=== PATIENT | male | born 1950 | race African-American/Black ===

== ENCOUNTER 2017-12-31 20:19 | Inpatient (IN) | payer MEDICARE ==
[2017-12-31] MEDS ORDERED: NACL 0.9% 500 ML 500 ML IV ONE (20:46)
[2017-12-31 20:59] LABS: Basophils # (Auto) 0.1 K/mm3 (0.0-0.1); Basophils % (Auto) 0.5 % (0.0-1.8); Eosinophils # (Auto) 0.1 K/mm3 (0.0-0.4); Eosinophils % (Auto) 0.7 % (0.0-4.3); Hematocrit 38.9 % (35.5-45.6); Hemoglobin 12.5 gm/dl (11.8-15.2); Lymphocytes # (Auto) 0.9 K/mm3 (1.2-5.4); Lymphocytes % (Auto) 7.4 % (13.4-35.0); Mean Corpuscular HGB Conc 32 % (32-34); Monocytes # (Auto) 0.7 K/mm3 (0.0-0.8); Monocytes % (Auto) 5.2 % (0.0-7.3); Platelet Count 190 K/mm3 (140-440); Red Blood Count 5.76 M/mm3 (3.65-5.03); Red Cell Distribution Width 14.8 % (13.2-15.2)
[2017-12-31 21:08] LABS: Mean Corpuscular Hemoglobin 22 pg (28-32); Mean Corpuscular Volume 68 fl (84-94)
[2017-12-31 21:09] LABS: INR 0.85 (0.87-1.13)
[2017-12-31 21:13] LABS: Alanine Aminotransferase 29 units/L (7-56); Albumin 3.6 g/dL (3.9-5); BUN/Creatinine Ratio 16; Blood Urea Nitrogen 13 mg/dL (9-20); Hemolysis Index 2
[2017-12-31 21:16] LABS: Calcium 5.8 mg/dL (8.4-10.2)
[2017-12-31 21:21] LABS: Bilirubin,Urine NEG (Negative); Blood,Urine MOD (Negative); Color,Urine Yellow (Yellow); Hyaline Casts,Urine 2 /LPF; Mucus,Urine 2+ /HPF; Urobilinogen,Urine < 2.0 mg/dL (<2.0)
[2017-12-31 21:22] LABS: WBC,Urine > 182.0 /HPF (0.0-6.0)
--- NOTE | 2017-12-31 22:23 | XRay Report ---
FINAL REPORT EXAM: XR CHEST 1V AP HISTORY: possible Sepsis TECHNIQUE: upright single view chest PRIORS: None. FINDINGS: Cardiac and mediastinal contours are unremarkable. No focal pulmonary infiltrate is identified. No pleural fluid collection seen. Pulmonary vasculature is unremarkable. IMPRESSION: Negative single-view chest
[2017-12-31] MEDS ORDERED: cefTRIAXone 2 GM in NACL 0.9% 20 ML IV ONE (23:14)
[2017-12-31] MEDS ORDERED: ULTRAM PO ONE (23:37)
--- NOTE | 2017-12-31 23:42 | Emergency Department Report ---
ED Fever HPI - General Chief Complaint: Fever Stated Complaint: CHILLS Time Seen by Provider: 12/31/17 23:12 - History of Present Illness Initial Comments: Mr. Fournier is a healthy 67-year-old male with history of dyslipidemia, BPH. Recently diagnosed with urinary retention. He was evaluated 2 times this past week at [facility]. In between the two ED visits, he was evaluated by a urologist who removed Cormier catheter. He subsequently needed catheter to be replaced on the second visit. He's been in good health. He developed discomfort pelvic discomfort on yesterday. Today he developed fever. On-call physician recommended evaluation in the ER for possible sepsis. Timing/Duration: this evening Fever Severity/Quality: subjective Associated Symptoms: other (pelvic pain) ED Review of Systems ROS: Stated complaint: CHILLS Other details as noted in HPI Comment: All other systems reviewed and negative Constitutional: chills, fever Cardiovascular: denies: chest pain Gastrointestinal: denies: abdominal pain, nausea, vomiting Genitourinary: urgency, dysuria, testicular pain ED Past Medical Hx - Past Medical History Previous Medical History?: Yes Hx Hypertension: Yes Additional medical history: High cholesterol, Prostate issues x 2 years, since last Sunday problems urination - Surgical History Past Surgical History?: Yes Hx Appendectomy: Yes Additional Surgical History: Hernia - Social History Smoking Status: Never Smoker ED Physical Exam - General Limitations: No Limitations General appearance: alert, in no apparent distress - Head Head exam: Present: atraumatic, normocephalic - Eye Eye exam: Present: normal appearance - ENT ENT exam: Present: mucous membranes moist - Neck Neck exam: Present: normal inspection - Respiratory Respiratory exam: Present: normal lung sounds bilaterally. Absent: respiratory distress, wheezes, rales, rhonchi - Cardiovascular Cardiovascular Exam: Present: regular rate, normal rhythm, normal heart sounds. Absent: systolic murmur, diastolic murmur, rubs, gallop - GI/Abdominal GI/Abdominal exam: Present: soft, normal bowel sounds. Absent: distended, tenderness, guarding, rebound - Rectal Rectal exam: Present: deferred - Extremities Exam Extremities exam: Present: normal inspection - Back Exam Back exam: Present: normal inspection - Neurological Exam Neurological exam: Present: alert, oriented X3 - Psychiatric Psychiatric exam: Present: normal affect, normal mood - Skin Skin exam: Present: warm, dry, intact, normal color. Absent: rash ED Course Vital Signs 12/31/17 12/31/17 12/31/17 20:31 21:55 22:00 Temperature 101.2 F H Pulse Rate 104 H 88 89 Respiratory 20 22 Rate Blood Pressure 108/74 118/72 Blood Pressure [Left] O2 Sat by Pulse 97 96 97 Oximetry 12/31/17 12/31/17 12/31/17 22:01 22:31 23:00 Temperature 100.1 F H Pulse Rate 88 76 76 Respiratory 19 16 22 Rate Blood Pressure 133/76 132/78 Blood Pressure 119/72 [Left] O2 Sat by Pulse 98 98 97 Oximetry 12/31/17 01/01/18 01/01/18 23:31 00:01 00:03 Temperature Pulse Rate 83 86 91 H Respiratory 15 Rate Blood Pressure 141/77 145/58 145/58 Blood Pressure [Left] O2 Sat by Pulse 99 97 98 Oximetry 01/01/18 01/01/18 01/01/18 00:10 00:30 01:00 Temperature 102.2 F H Pulse Rate 84 91 H Respiratory 16 Rate Blood Pressure 137/68 122/66 Blood Pressure [Left] O2 Sat by Pulse 94 95 Oximetry 01/01/18 01/01/18 01:07 01:30 Temperature 100.7 F H Pulse Rate 87 Respiratory 17 Rate Blood Pressure 106/52 Blood Pressure [Left] O2 Sat by Pulse 95 Oximetry ED Medical Decision Making - Lab Data Result diagrams: 12/31/17 20:51 12/31/17 20:51 - Radiology Data interpreted by me: NSR nl rate nl axis nl intervals no ST-T signs of ischemia no ST elevation rate 80 beats a minute - Medical Decision Making Mr. Fournier 67-year-old male who presents with fever and pelvic discomfort due to UTI associated with Cormier catheter. He currently has normal vital signs without any intervention. He does not have tachycardia or hypotension. He has normal respiratory rate. He does have fever and elevated white count. He does meet SIRS criteria with possible risk of sepsis. Therefore he received IV ceftriaxone in the ED. Blood cultures were obtained. Patient has history of vitamin D deficiency. He takes calcium supplementation daily. He has notable hypocalcemia in the ED without EKG abnormalities. Persistent fever and concern for sepsis patient is admitted to the hospitalist service. Critical care attestation.: If time is entered above; I have spent that time in minutes in the direct care of this critically ill patient, excluding procedure time. ED Disposition Clinical Impression: Complicated UTI (urinary tract infection), SIRS (systemic inflammatory response syndrome) Disposition: OP ADMIT IP TO THIS HOSP Is pt being admited?: Yes Does the pt Need Aspirin: No Condition: Stable Time of Disposition: 02:06
[2017-12-31] MEDS ORDERED: TYLENOL PO ONE (23:46)
[2018-01-01] MEDS ORDERED: ZOFRAN IV PRN (03:07)
[2018-01-01] MEDS ORDERED: MORPHINE IV PRN (03:07)
[2018-01-01] MEDS ORDERED: HEPARIN ONE (03:30)
[2018-01-01] MEDS: HEPARIN SUB-Q SCH ×3 (03:34→22:37)
[2018-01-01] MEDS ORDERED: CALCIUM GLUCONATE 1,000 MG in NACL 0.9% 100 ML IV ONE (04:08)
[2018-01-01] MEDS ORDERED: CALCIUM CHLORIDE 1,000 MG in NACL 0.9% 100 ML IV ONE (04:15)
[2018-01-01] MEDS: TYLENOL PO PRN ×2 (04:57→09:46)
[2018-01-01] MEDS ORDERED: ROCEPHIN/NS 1 GM/50 ML 1 GM/50 ML BAG IV SCH (10:00)
[2018-01-01 11:11] LABS: Hematocrit 42.2 % (35.5-45.6); Hemoglobin 13.8 gm/dl (11.8-15.2); Mean Corpuscular HGB Conc 33 % (32-34); Platelet Count 191 K/mm3 (140-440); Red Blood Count 6.25 M/mm3 (3.65-5.03); Red Cell Distribution Width 14.8 % (13.2-15.2)
--- NOTE | 2018-01-01 11:13 | Event Note ---
Date: 01/01/18 Pt seen and examined Presented with sepsis, UTI and urinary retention Change abx to cefepime till cx result available Will cont current mx and plan as dictated in H and P.
[2018-01-01] MEDS: NACL 0.9% 1000 ML 1,000 ML IV SCH ×2 (11:16→22:36)
[2018-01-01] MEDS: PROSCAR PO SCH (11:16)
[2018-01-01] MEDS: FLOMAX PO SCH (11:16)
[2018-01-01] MEDS: PERCOCET 5/325 PO PRN ×2 (11:17→17:41)
[2018-01-01 11:18] LABS: Mean Corpuscular Hemoglobin 22 pg (28-32); Mean Corpuscular Volume 68 fl (84-94)
[2018-01-01 11:20] LABS: BUN/Creatinine Ratio 10; Blood Urea Nitrogen 9 mg/dL (9-20); Calcium 9.4 mg/dL (8.4-10.2); Hemolysis Index 11
[2018-01-01] MEDS: MAXIPIME 1 GM in NACL 0.9% 20 ML IV SCH ×2 (13:41→22:37)
[2018-01-01] MEDS ORDERED: MAXIPIME/NS 1 GM/100 ML 1 GM/100 ML BAG IV SCH (14:00)
[2018-01-01] MEDS ORDERED: cefTRIAXone 1 GM in NACL 0.9% 20 ML IV SCH (22:00)
[2018-01-02] MEDS: PERCOCET 5/325 PO PRN (03:05)
[2018-01-02] MEDS: MAXIPIME 1 GM in NACL 0.9% 20 ML IV SCH ×3 (06:40→21:15)
[2018-01-02] MEDS: PROSCAR PO SCH (10:18)
[2018-01-02] MEDS: HEPARIN SUB-Q SCH ×2 (10:18→21:11)
[2018-01-02] MEDS: FLOMAX PO SCH (10:18)
--- NOTE | 2018-01-02 10:43 | Cat Scan Report ---
FINAL REPORT EXAM: CT ABDOMEN PELVIS WO CON HISTORY: urinary retention TECHNIQUE: CT of the abdomen and pelvis without IV contrast. Coronal and sagittal reconstructed imaging provided. PRIORS: None currently available. FINDINGS: ABDOMEN: Liver, gallbladder, stomach, spleen, pancreas, adrenals, and kidneys are unremarkable. No hydronephrosis. No nephroureteral stones. No significant perinephric stranding. There is no abdominal aortic aneurysm. Lwct-ju-glipcvzt atherosclerotic disease noted. IVC is unremarkable. There is no periaortic or retroperitoneal adenopathy or mass. Moderate stool in the cecum and ascending colon. Hjrg-ij-itrxtakm stool elsewhere. No wall thickening or inflammatory changes. Terminal ilium is unremarkable. The appendix is not identified. There are no pericecal inflammatory changes. Small bowel loops are unremarkable. No obstructive pattern. No free air. No free fluid. Mesentery is unremarkable. Fat-containing umbilical hernia without strangulation. PELVIS: Bladder is partially collapsed around the Cormier catheter but notable bladder wall thickening identified with a thickness of 7.2 mm. Significantly enlarged prostate and seminal vesicles noted. There is no pelvic mass or adenopathy. Inguinal regions are unremarkable. Bones: No suspicious osseous lesions on this limited examination of the skeleton. Metastatic disease better evaluated with bone scan. Degenerative changes are in the spine. IMPRESSION: Significantly enlarged prostate and seminal vesicles. Thick wall bladder. Findings could be related to bladder outlet obstruction. Differential diagnosis includes cystitis and infiltrating tumor.
[2018-01-02] MEDS: TYLENOL PO PRN ×2 (12:45→22:45)
[2018-01-02] MEDS: NACL 0.9% 1000 ML 1,000 ML IV SCH (13:53)
--- NOTE | 2018-01-02 15:06 | Progress Note ---
Assessment and Plan UTI with sepsis - Cx growing gm -ve rods - cont abx, will follow final cx result BPH with urinary retention - placed on funes - monitor renal function - consulted urology - cont flomax and tamsulosin HLD, on statin at home DVT Px, lovenox Subjective Date of service: 01/02/18 Interval history: Pt seen and examined denies any chest pain or SOB c/o penile pain at the catheter site Discussed bedside with patient and family Objective - Constitutional Vitals: Vital Signs - 12hr 01/02/18 01/02/18 01/02/18 07:35 10:00 10:13 Temperature 98.9 F Pulse Rate 84 80 Pulse Rate [ 80 Apical] Respiratory 18 18 Rate Blood Pressure 132/85 Blood Pressure [Left] O2 Sat by Pulse 99 99 Oximetry 01/02/18 01/02/18 01/02/18 12:43 12:47 14:11 Temperature 100.0 F H 100 F H 99.0 F Pulse Rate 84 82 Pulse Rate [ Apical] Respiratory 20 16 Rate Blood Pressure 139/77 Blood Pressure 139/77 [Left] O2 Sat by Pulse 99 98 Oximetry General appearance: Present: no acute distress, well-nourished - EENT Eyes: PERRL, EOM intact ENT: hearing intact, clear oral mucosa Ears: bilateral: normal - Neck Neck: supple, normal ROM - Respiratory Respiratory effort: normal Respiratory: bilateral: CTA - Breasts Breasts: normal - Cardiovascular Rhythm: regular Heart Sounds: Present: S1 & S2. Absent: gallop, rub Extremities: pulses intact, No edema, normal color, Full ROM - Gastrointestinal General gastrointestinal: Present: soft, non-tender, non-distended, normal bowel sounds - Integumentary Integumentary: clear, warm, dry - Musculoskeletal Musculoskeletal: 1, strength equal bilaterally - Neurologic Neurologic: moves all extremities - Psychiatric Psychiatric: memory intact, appropriate mood/affect, intact judgment & insight - Labs CBC & Chem 7: 01/01/18 09:31 01/01/18 09:31
--- NOTE | 2018-01-02 16:11 | Progress Note ---
Assessment and Plan mild prostatic enlargemet met with daughter raymond bergman keep funes iv antibiotics dictated Subjective Date of service: 01/02/18 Principal diagnosis: retention .. infection Objective - Constitutional Vitals: Vital Signs - 12hr 01/02/18 01/02/18 01/02/18 07:35 10:00 10:13 Temperature 98.9 F Pulse Rate 84 80 Pulse Rate [ 80 Apical] Respiratory 18 18 Rate Blood Pressure 132/85 Blood Pressure [Left] O2 Sat by Pulse 99 99 Oximetry 01/02/18 01/02/18 01/02/18 12:43 12:47 14:11 Temperature 100.0 F H 100 F H 99.0 F Pulse Rate 84 82 Pulse Rate [ Apical] Respiratory 20 16 Rate Blood Pressure 139/77 Blood Pressure 139/77 [Left] O2 Sat by Pulse 99 98 Oximetry General appearance: Present: no acute distress - Neck Neck: supple - Respiratory Respiratory effort: normal Extremities: no ischemia - Gastrointestinal General gastrointestinal: Present: soft, non-tender Rectal Exam: normal rectal tone - Genitourinary Male genitourinary: normal (funes) - Labs CBC & Chem 7: 01/01/18 09:31 01/01/18 09:31
[2018-01-03] MEDS: NACL 0.9% 1000 ML 1,000 ML IV SCH ×2 (02:23→23:08)
[2018-01-03] MEDS: MAXIPIME 1 GM in NACL 0.9% 20 ML IV SCH (05:28)
[2018-01-03] MEDS: HEPARIN SUB-Q SCH ×2 (09:16→21:57)
[2018-01-03] MEDS: PROSCAR PO SCH (09:16)
[2018-01-03] MEDS: FLOMAX PO SCH (09:16)
--- NOTE | 2018-01-03 09:24 | Consultation ---
HISTORY OF PRESENT ILLNESS: The patient is here with his daughter who actually is in my office now, who came in with his second episode of urinary retention with high fevers and chills. He had a catheter inserted after a long trip from [place] and then taken out. He was told everything was fine. He had recurrent retention. He is known to have a prostate issue. He has been on Flomax in the past. PAST MEDICAL HISTORY: Basically unremarkable except for diminished flow. PAST SURGICAL HISTORY: He has had a hernia surgery. PAST MEDICAL HISTORY: Hypertension. FAMILY HISTORY: Negative. REVIEW OF SYSTEMS: As mentioned above. PHYSICAL EXAMINATION: GENERAL: He is awake, alert, in no distress. HEENT: Normocephalic, nontraumatic. ABDOMEN: Soft, nondistended. GENITALIA: Testes descended bilaterally. Uncircumcised. Cormier catheter was 3- way draining with the port is plugged. Digital rectal exam mildly enlarged prostate. No localized masses. IMPRESSION: Urinary retention, on Flomax. He needs an evaluation, leave the Cormier, cystoscopy, urodynamics followup. AMEYA
[2018-01-03] MEDS: TYLENOL PO PRN (10:10)
--- NOTE | 2018-01-03 13:12 | Progress Note ---
Assessment and Plan UTI with sepsis - Cx growing gm -ve rods - will follow final cx result - change Cefepime to meropenem as family reported itching from Cefepime BPH with urinary retention - placed on funes - monitor renal function - Urology following - cont flomax and tamsulosin HLD, on statin at home DVT Px, lovenox Subjective Date of service: 01/03/18 Principal diagnosis: retention .. infection Interval history: Pt seen and examined denies any chest pain or SOB Family reported that pt had itching with cefepime Discussed bedside with patient and family Objective - Constitutional Vitals: Vital Signs - 12hr 01/03/18 01/03/18 01/03/18 02:00 02:48 07:40 Temperature 98.7 F 97.8 F Pulse Rate 61 62 Respiratory 20 18 Rate Blood Pressure 138/78 137/78 O2 Sat by Pulse 97 98 Oximetry General appearance: Present: no acute distress, well-nourished - EENT Eyes: PERRL, EOM intact ENT: hearing intact, clear oral mucosa Ears: bilateral: normal - Neck Neck: supple, normal ROM - Respiratory Respiratory effort: normal Respiratory: bilateral: CTA - Breasts Breasts: normal - Cardiovascular Rhythm: regular Heart Sounds: Present: S1 & S2. Absent: gallop, rub Extremities: pulses intact, No edema, normal color, Full ROM - Gastrointestinal General gastrointestinal: Present: soft, non-tender, non-distended, normal bowel sounds - Integumentary Integumentary: clear, warm, dry - Musculoskeletal Musculoskeletal: 1, strength equal bilaterally - Neurologic Neurologic: moves all extremities - Psychiatric Psychiatric: memory intact, appropriate mood/affect, intact judgment & insight - Labs CBC & Chem 7: 01/01/18 09:31 01/01/18 09:31
[2018-01-03] MEDS: MERREM/NS 500 MG/50 ML 500 MG/50 ML BAG IV SCH ×2 (16:21→20:35)
[2018-01-03] MEDS ORDERED: NON-FORMULARY (Simvastatin 40 MG) PO SCH (22:00)
[2018-01-03] MEDS ORDERED: PRAVACHOL PO SCH (22:00)
[2018-01-04] MEDS: MERREM/NS 500 MG/50 ML 500 MG/50 ML BAG IV SCH ×3 (02:35→14:42)
[2018-01-04 07:24] LABS: Hematocrit 37.7 % (35.5-45.6); Mean Corpuscular HGB Conc 32 % (32-34); Platelet Count 244 K/mm3 (140-440); Red Blood Count 5.56 M/mm3 (3.65-5.03)
[2018-01-04 07:30] LABS: Mean Corpuscular Hemoglobin 22 pg (28-32); Mean Corpuscular Volume 68 fl (84-94)
[2018-01-04 07:37] LABS: BUN/Creatinine Ratio 12; Blood Urea Nitrogen 7 mg/dL (9-20); Calcium 8.8 mg/dL (8.4-10.2); Hemolysis Index 5
--- NOTE | 2018-01-04 09:07 | History and Physical Report ---
CHIEF COMPLAINT: Fever and chills. HISTORY OF PRESENT ILLNESS: The patient is a 67-year-old man with recent history of urinary retention due to prostate enlargement and the patient was following up with the urologist and had the Cormier catheter placed. Because of urinary retention, catheter was also replaced and the patient subsequently developed fever and chills and also has tachycardia. There is no history of shortness of breath. No history of nausea or vomiting. The patient was supposed to follow up with the urologist within the next 48 hours. He presented to the Emergency Room. There is also history of pain at the site of catheter placement. PAST MEDICAL HISTORY: Pertinent for hypertension. Also, the patient has past history of high cholesterol, prostate enlargement, urinary retention. PAST SURGICAL HISTORY: Pertinent for appendectomy and hernia repair. FAMILY HISTORY: Noncontributory. SOCIAL HISTORY: The patient lives with family. Does not smoke, does not drink alcohol and does not use illicit drugs. MEDICATIONS: The patient's home medications are not known at this time. ALLERGIES: THE PATIENT IS ALLERGIC TO PENICILLIN. REVIEW OF SYSTEMS: CONSTITUTIONAL: There is fever. There is chills, but no diaphoresis. HEENT: There is no headache or sore throat. CARDIOVASCULAR: There is no chest pain or orthopnea. RESPIRATORY: There is no shortness of breath or cough. GASTROINTESTINAL: There is no nausea, no vomiting, no abdominal pain, diarrhea or constipation. NEUROLOGICAL: There is no numbness, no dizziness, no altered mental status. MUSCULOSKELETAL: There is no joint pain or swelling. DERMATOLOGICAL: There is no skin rash or itching. GENITOURINARY: There is history of dysuria and pain in the penile area where the Cormier catheter is in place. There is no hematuria and there is no flank pain. Rest of system review is normal. PHYSICAL EXAMINATION: GENERAL: At the time of exam, the patient was found to be alert, oriented x 3 and not in acute distress. VITAL SIGNS: Shows temperature of 99 degrees Fahrenheit, pulse of 79, respiration 12, blood pressure 114/68, O2 sat of 98% on room air. HEENT: Shows pupils to be equal, round, reactive to light and accommodation. Extraocular muscles are intact. NECK: Supple with no JVD or carotid bruit. CARDIOVASCULAR: Showed normal first and second heart sounds with no gallops or murmur. RESPIRATORY SYSTEM: Showed good air entry on both sides of the lungs with no abnormal breath sounds. GASTROINTESTINAL SYSTEM: Show abdomen to be full, soft, nontender with no organomegaly or rigidity. NEUROLOGICAL: Shows no focal deficit. MUSCULOSKELETAL SYSTEM: Show no joint swelling or tenderness. DERMATOLOGICAL SYSTEM: Show no skin rash. GENITOURINARY: Showing no costovertebral angle tenderness. PERTINENT LABORATORY AND IMAGING STUDIES: The patient has CBC done with elevated white count of 5600 with normal hemoglobin, normal hematocrit, low MCV of 68 with CBC differential showing low lymphocyte count of 7.4 and elevated segmented neutrophil of 86.2%. The patient's coagulation studies were unremarkable. The patient's chemistry shows slight decrease in sodium level of 132 with low chloride of 96.4 and low calcium level of 5.8 with elevated total bilirubin of 2. The patient's urinalysis show large urine leukocyte esterase with high urine WBC of greater than 182 and high urine RBC of 32. The finding of 1+ yeast budding in the urine. IMAGING STUDIES: The patient had chest x-ray done in the Emergency Room that shows no acute lesion. DIAGNOSES: 1. Urinary catheter associated urinary tract infection. 2. Systemic inflammatory response syndrome. 3. Hypocalcemia. PLAN: The patient will be admitted to medical floor on telemetry and the patient will be on IV ceftriaxone 1 gram daily, having had the first dose without reaction. The patient will be on IV morphine 2 mg every 4 hours as needed for pain and will be on IV Zofran 4 mg every 8 hours for nausea and vomiting. The patient will be on IV normal saline at 75 mL an hour and will be on Tylenol 650 mg by mouth every 4 hours for fever and headache. DVT prophylaxis will be through heparin 5000 units subQ q. 12 hours. The patient will have 1 gram of calcium gluconate IV. The patient's home medications will be reconciled and started accordingly when they are known. JOB# [id number] OCN/NTS
[2018-01-04] MEDS: FLOMAX PO SCH (09:50)
[2018-01-04] MEDS: HEPARIN SUB-Q SCH (09:51)
[2018-01-04] MEDS: PROSCAR PO SCH (09:51)
--- NOTE | 2018-01-04 10:16 | Consultation ---
HISTORY OF PRESENT ILLNESS: The patient is here with his daughter who actually is in my office now, who came in with his second episode of urinary retention with high fevers and chills. He had a catheter inserted after a long trip from [place] and then line of ____ and taken out. He was told everything was fine. He had recurrent retention. He is known to have a prostate issue. He has been on Flomax in the past. PAST MEDICAL HISTORY: Basically unremarkable except for diminished flow. PAST SURGICAL HISTORY: He has had a hernia surgery. PAST MEDICAL HISTORY: Hypertension. FAMILY HISTORY: Negative. REVIEW OF SYSTEMS: As mentioned above. PHYSICAL EXAMINATION: GENERAL: He is awake, alert, in no distress. HEENT: Normocephalic, nontraumatic. ABDOMEN: Soft, nondistended. GENITALIA: Testes descended bilaterally. Uncircumcised. Cormier catheter was 3-way draining with the port is plugged. Digital rectal exam mildly enlarged prostate. No localized masses. IMPRESSION: Urinary retention, on Flomax. He needs an evaluation, leave the Cormier, cystoscopy, urodynamics followup. JOB# [id number] EMILY/CINTHIA
--- NOTE | 2018-01-04 11:23 | Consultation ---
History of Present Illness - Reason for Consult Consult date: 01/04/18 UTI Requesting physician: MALKA JAY - History of Present Illness HPI: 68 yo M from [place] with PMH dyslipidemia, BPH who returned from a 2-month trip to [facility] last and was unable to urinate while on the plane. He was taken to [facility], where he had a funes catheter placed. He followed up same day with urology and the funes catheter was removed. While at home he developed again urinary retention and had to go to the ER again on Thursday 12/28 for a new funes catheter insertion. On 12/31 he developed pelvic discomfort and fever. Therefore he presented to [facility] ER on 12/31. He denies N/V/D, cough, SOB, CP, palpitations, skin rash, HEWITT. In the ER his temperature was 101.2, pulse 104, respiratory rate 20, saturation 97% , blood pressure 108/74. Labs showed leukocytosis of 12.6, H&H 12.5 and 38.9, platelets 190. Bun creatinine 13 and 0.8. Lactic acid 1.3. Urinalysis with negative nitrates, large leukocyte esterase, RBC 32, WBC > 182. Urine culture grew 10-100,000 colonies of Morganella morganii (MDR). Blood cultures are no growth today. Chest x-ray showed no acute findings. CT of abdomen and pelvis done on 01/02 showed large prostate and seminal vesicles, thick wall bladder that could be secondary to bladder outlet obstruction versus cystitis versus infiltrative tumor. Patient received ceftriaxone in the emergency room. He was started on 01/01 on cefepime. Apparently patient developed nightmares, shakiness on the cefepime. Therefore it was discontinued on 01/03. He is currently on meropenem which was started 01/03. Infectious diseases is consulted today to help with further antibiotic management. Microbiology: Blood cultures: 12/31 NGTD Urine cultures 12/31 MDR Morganella morganii Current Antimicrobials: Meropenem 01/03- Previous Antimicrobials: Ceftriaxone 01/01. Cefepime 01/01-01/03. Past History Past Medical History: hyperlipidemia, other (BPH) Past Surgical History: appendectomy, hernia repair Medications and Allergies Allergies Allergy/AdvReac Type Severity Reaction Status Date / Time Penicillins Allergy Dizziness Verified 12/31/17 20:29 Home Medications Medication Instructions Recorded Confirmed Last Taken Type Finasteride [Proscar] 5 mg PO DAILY 01/02/18 01/02/18 Unknown History Fluticasone [Flonase] 1 spray INNOSTRIL DAILY PRN 01/02/18 01/02/18 Unknown History Simvastatin 40 mg PO HS 01/02/18 01/02/18 Unknown History Tamsulosin HCl [Flomax] 0.4 mg PO HS 01/02/18 01/02/18 Unknown History Active Meds: Active Medications Finasteride (Proscar) 5 mg PO QDAY [facility] Last Admin: 01/04/18 09:51 Dose: 5 mg Heparin Sodium (Porcine) (Heparin) 5,000 unit SUB-Q Q12HR [facility] Last Admin: 01/04/18 09:51 Dose: 5,000 unit Meropenem (Merrem/Ns 500 Mg/50 Ml) 500 mg in 50 mls @ 50 mls/hr IV Q6H [facility] Last Admin: 01/04/18 09:51 Dose: 50 mls/hr Morphine Sulfate (Morphine) 2 mg IV Q4H PRN PRN Reason: Pain, Moderate (4-6) Ondansetron HCl (Zofran) 4 mg IV Q8H PRN PRN Reason: Nausea And Vomiting Oxycodone/Acetaminophen (Percocet 5/325) 1 tab PO Q6H PRN PRN Reason: Pain, Moderate (4-6) Last Admin: 01/02/18 03:05 Dose: 1 tab Pravastatin Sodium (Pravachol) 80 mg PO QHS [facility] Last Admin: 01/03/18 21:57 Dose: 80 mg Tamsulosin HCl (Flomax) 0.4 mg PO QDAY [facility] Last Admin: 01/04/18 09:50 Dose: 0.4 mg Review of Systems Constitutional: other (As per HPI.) Physical Examination - Physical Exam Narrative exam: General appearance: Pt in NAD. A&XO3. Conversant. Eyes: anicteric sclerae, moist conjunctivae; PERRLA. HENT: Atraumatic; oropharynx clear with moist mucous membranes and no mucosal ulcerations/no oral thrush; normal hard and soft palate. Normal external ears. Neck: Trachea midline; supple, no thyromegaly or lymphadenopathy Lungs: CTA, with normal respiratory effort and no intercostal retractions CV: RRR, S1,S2. Abdomen: +BS. Soft, NT/ND. No masses or hepatosplenomegaly. : funes catheter with clear urine in the bag (present on admission). Extremities: No c/c/e. Skin: Normal temperature, turgor and texture; no rash, ulcers or subcutaneous nodules Psych: Appropriate affect, alert and oriented to person, place and time. Neuro: alert and oriented x 3. No focal deficits. Lines: PIV - Constitutional Vitals: Vital Signs Temp Pulse Resp BP Pulse Ox 98.7 F 61 18 117/73 99 01/04/18 07:59 01/04/18 07:59 01/04/18 07:59 01/04/18 07:59 01/04/18 07:59 Temperature -Last 24 Hours Temperature 98.7 F Temperature 98.5 F Temperature 98.0 F Temperature 97.6 F Results - Labs CBC & Chem 7: 01/04/18 06:31 01/04/18 06:31 Labs: Abnormal lab results 01/04/18 01/04/18 Range/Units 06:31 06:31 RBC 5.56 H (3.65-5.03) M/mm3 MCV 68 L (84-94) fl MCH 22 L (28-32) pg BUN 7 L (9-20) mg/dL Creatinine 0.6 L (0.8-1.5) mg/dL Assessment and Plan Assessment: 1) Sepsis: Present on admission, manifested by fever, tachycardia, leukocytosis. Etiology Morganella morganii UTI 2) Complicated Morganella morganii UTI with funes catheter in place POA. 3) Acute fever. Resolved. 4) Acute leukocytosis. Resolved. 5) BPH with urinary retention requiring Funes catheter insertion. 6) PCN allergy (unconsciousness). 7) Recently returned from [place]. Plan: -Continue meropenem 1 g IV q8H for 9 more days. -No oral antibiotics options. -CBC and CMP in 1 week -f/u with in ID clinic with Dr Young in 2 weeks. -Please change funes catheter prior to discharge. -Ok to place PICC line. -Will need outpatient f/u with urology. -d/w pt and pt's family bedside -d/w Dr Jay. Thank you for your consultation, will follow up with you. Cami Andujar MD Infectious Diseases Specialist [facility] ([facility] [phone]
[2018-01-04 14:42] VITALS: BP 121/72
--- NOTE | 2018-01-04 14:58 | XRay Report ---
Single chest: Compared to 12/31/17. History: Right arm PICC line placement. Findings: Normal cardiomediastinal silhouette. Trachea is midline. No consolidation, pneumothorax or pleural effusion. Tip of right PICC line in upper superior vena cava. Impression: Tip of right PICC line in upper superior vena cava.
--- NOTE | 2018-01-04 17:38 | Discharge Summary ---
Providers - Providers Date of Admission: 01/01/18 03:04 Date of discharge: 01/04/18 Attending physician: MALKA JAY 01/04/18 09:46 Consult to Physician [CONS] Routine Comment: Consulting Provider: DESI SALAZAR Physician Instructions: Reason For Exam: UTI 01/04/18 11:07 Consult to Physician [CONS] Routine Comment: dr. andujar talked to nurse/vasiliy Consulting Provider: CAMI ANDUJAR Physician Instructions: Reason For Exam: UTI 01/04/18 12:07 Consult to Case Management [CONS] Routine Services Needed at Discharge: Other Notified:: van Additional Physician Instructions: [facility] Cami Andujar MD M [phone] O [phone] OUTPATIENT PARENTERAL ANTIBIOTIC THERAPY ORDERS Diagnoses: Morganella morganii UTI Antimicrobial administration: Meropenem 1 g IV q8 hours for 9 days. Lines: PICC Lab monitoring: CBC, CMP, once a week preferably on Sunday morning. Please fax results to [phone] ( attention Dr Young) and call [phone] for critical lab results. Please call for clinic appointment with Dr Young in 2 weeks. Number [phone]. Cami Andujar Date: 01/04/18 01/04/18 12:13 PICC Line Insertion [Consult to PICC Line RN] [CONS] Stat Reason For Exam: iv abx Type Line:: PICC Primary care physician: CLOUD ARCHITECT Hospitalization Condition: Stable Hospital course: Discharge diagnosis: UTI with sepsis - Cx growing gm -ve rods - change Cefepime to meropenem as family reported itching from Cefepime - d/c with meropenem 1gm q8h for 9 more days BPH with urinary retention - placed on funes - monitor renal function - Urology following - cont flomax and tamsulosin HLD, on statin at home DVT Px, lovenox Disposition: DC/TX-06 HOME [facility] Time spent for discharge: 32 minutes Core Measure Documentation - Palliative Care Palliative Care/ Comfort Measures: Not Applicable - Core Measures Any of the following diagnoses?: none Exam - Constitutional Vitals: Temp Pulse Resp BP Pulse Ox 98.6 F 63 18 121/72 96 01/04/18 14:09 01/04/18 14:09 01/04/18 14:09 01/04/18 14:09 01/04/18 14:09 Plan Activity: advance as tolerated Weight Bearing Status: Weight Bear as Tolerated Diet: low fat, low salt Additional Instructions: F/u with Dr. Young in two weeks. F/u with urology in one week Follow up with: PRIMARY CARE, [Primary Care Provider] - 7 Days Prescriptions: Meropenem [Merrem] 1,000 mg IV Q8HR 9 Days vial
== END 2018-01-04 19:26 | disposition home health service (06) | DRG 872 ==
LOC: ED 20:19 → OBSVTOIN 01-01 03:04 → 2B-ACE 01-01 03:04
PROVIDERS: ADMIT Internal Medicine; ATTEND Internal Medicine
DX: A41.9 Sepsis, unspecified organism (principal); N39.0 Urinary tract infection, site not specified; Z88.0 Allergy status to penicillin; E78.5 Hyperlipidemia, unspecified; I10 Essential (primary) hypertension; E78.00 Pure hypercholesterolemia, unspecified; N40.1 Benign prostatic hyperplasia with lower urinary tract symptoms; B96.4 Proteus (mirabilis) (morganii) as the cause of diseases classified elsewhere
CPT/HCPCS: 36415; 71045; 74176; 80048; 80053; 81001; 82140; 82805; 85025; 85027; 85610; 87040; 87076; 87086; 87186; 93005; 93010; 96361; 96365; A9270-GY; J0692; J0696; J1644; J2185; J7030; J7040